=== PATIENT | female | born 1960 | race Caucasian/White ===

== ENCOUNTER 2019-06-23 17:40 | Emergency (ER) | payer OTHER, SELFPAY ==
[2019-06-23 18:00] VITALS: BP 196/103; PULSE 77; RESP 20; O2SAT 97
--- NOTE | 2019-06-23 18:57 | ED.ALLEREA ---
HPI - Allergic Reaction General Chief complaint: Allergic Reaction Stated complaint: ALLERGIC REACTION Time Seen by Provider: 06/23/19 18:30 Source: patient Mode of arrival: ambulatory Limitations: no limitations History of Present Illness HPI narrative: Silvana is a very pleasant 58-year-old female patient. She presents to the emergency room ambulatory with her . She states that she is having an allergic reaction . Gel state s that Sunday morning ( this is Sunday) she ate a store bought blueberry pie. About 8 or 10 hours later she started having through right ache rashes which were generalized on the trunk as well as the limbs. She did not do anything about it on Sunday. On Sunday at 2:00 p.m. she went to the [facility]. She states that she got a shot of steroid there and was given a prescription for prednisone which she got filled but has not started taking it yet. This evening she felt like she has a lump in her throat and she felt like her tongue is swelling. She had some difficulty breathing but that has subsided now. The allergic to write a crash is a still present, generalized on the trunk and limbs. She says that she has never had any kind of reaction like this in the past. Silvana has history of pre diabetes. She is on metformin 500 mg b.i.d.. She has history of hypercholesterolemia. She takes fenofibrate 145 mg daily. She has been on these medications for 4-5 years. She has never had any trouble with them. Silvana is not a smoker. She occasionally drinks alcohol socially. She has no shortness of breath at this time. She has no chest pain. She has no abdominal pain. She has no nausea or vomiting. MD complaint: allergic reaction and other ( See HPI narrative) Exposure: unknown and food Symptoms: difficulty breathing, tongue swelling and other ( PI narrativ) Severity: moderate Treatment prior to arrival: other ( see HPI narrative) Previous Allergic Reaction History: none Related Data Home Medications Medication Instructions Recorded Confirmed fenofibrate nanocrystallized 145 mg PO DAILY 06/23/19 06/23/19 metformin 500 mg PO BID 06/23/19 06/23/19 Allergies Allergy/AdvReac Type Severity Reaction Status Date / Time No Known Allergies Allergy Verified 06/23/19 17:48 Review of Systems Review of Systems: All systems reviewed & are unremarkable except as noted in HPI and below Constitutional: Constitutional: Reports as per HPI, Denies chills and Denies fever(s) Eyes: Eyes: Reports as per HPI, Reports no additional eye complaints and Denies change in vision ENT: Reports system reviewed and no additional complaints, except as documented Comments: Vero had a feeling of a lump in her throat. She felt like her tongue is swelling up. On oral examination the tongue appears to be normal. Uvula is not swollen. Cardiovascular: Cardiovascular: Reports as per HPI, Reports no additional cardiovascular complaints, Denies chest pain and Denies radiating jaw, neck or arm pain Respiratory: Respiratory: Reports as per HPI Comments: had some difficulty breathing prior to arrival but none now. Gastrointestinal: Gastrointestinal: Reports as per HPI, Denies abdominal pain, Denies nausea and Denies vomiting Genitourinary: Genitourinary: Reports no additional female genitourinary complaints, Denies hematuria and Denies dysuria Musculoskeletal: Musculoskeletal: Reports no additional musculoskeletal complaints, Denies back pain, Denies joint swelling and Denies muscle cramps Integumentary/Breasts: Skin/Breast: Reports system reviewed and no additional complaints, except as docu, Reports pruritus and Reports rash Comments: See HPI narrative for details Neurologic: Reports system reviewed and no additional complaints, except as documented, Denies vertigo, Denies dizziness, Denies syncope, Denies headache(s), Denies focal weakness, Denies numbness and Denies weakness Psychiatric: Psychiatric: Reports no
[2019-06-23] MEDS: methylPREDNISolone SOD SUCC 125 MG VIAL IV PUSH (18:59)
[2019-06-23] MEDS: FAMOTIDINE 20 MG/ISO 50 ML 20 MG/50 ML BAG 100 MG (18:59)
[2019-06-23 19:53] VITALS: BP 131/92; PULSE 68; O2SAT 93
[2019-06-23 20:27] VITALS: BP 141/78; PULSE 67; O2SAT 93
== END 2019-06-23 20:28 | disposition home or self-care (01) ==
PROVIDERS: Emergency Provider Surgery
DX: T78.40XA Allergy, unspecified, initial encounter (principal)
CPT/HCPCS: 96365; 96375; 99282; 99284; J1200; J2930

== ENCOUNTER 2023-10-08 09:13 | Outpatient (CLI) | payer BC, SELFPAY ==
--- NOTE | ~2023-10-08 | XR_ITS ---
Lumbosacral Spine: AP, oblique, and lateral views Clinical History: Pain Findings: The normal lordotic curve is maintained. The vertebral bodies and posterior elements are i ntact. The intervertebral disc spaces are preserved. Moderate facet joint arthropathy present, espec ially the lower lumbar spine. The sacroiliac joints are normally outlined. Impression: Facet arthropathy, as above. Reviewed, dictated and finalized at location M. Impression: Facet arthropathy, as above.
--- NOTE | ~2023-10-08 | US_ITS ---
Renal-Bladder ultrasound Clinical History: Flank pain Technique: Real-time sonographic imaging of the kidneys and urinary bladder was performed. Findings: The right kidney measures 9.6 cm in length and the left kidney measures 9.8 cm. There is no hydronephrosis or renal calculus identified. Renal cortical echogenicity is within normal limits. No renal mass lesion is identified. The urinary bladder is moderately distended at the time of this exam. No intraluminal echoes are iden tified. No abnormal wall thickening is seen. Impression: Unremarkable ultrasound of the kidneys and urinary bladder. Reviewed, dictated and finalized at location M. Impression: Unremarkable ultrasound of the kidneys and urinary bladder.
== END 2023-10-08 09:14 ==
PROVIDERS: PCP Internal Medicine
DX: R10.9 Unspecified abdominal pain (principal); M12.88 Other specific arthropathies, not elsewhere classified, other specified site
CPT/HCPCS: 72110; 76775

== ENCOUNTER 2024-09-06 12:07 | Emergency (ER) | payer OTHER, SELFPAY ==
--- NOTE | ~2024-09-06 | CT_ITS ---
EXAMINATION: CT brain wo con DATE: 09/06/2024 12:32 INDICATION: Head injury TECHNIQUE: Computed tomography (CT) of the head was performed without intravenous contrast. Sagittal and coronal reconstructions were performed. The mA was adjusted according to patient size. Iterative reconstruction technique was employed. The dose-length product was 605.33 mGy-cm. COMPARISON: None FINDINGS: No fracture. No acute intracranial hemorrhage, acute infarction or abnormal extra axial fluid collect ion. Ventricles are normal and symmetric. No mass/mass effect. The orbits, paranasal sinuses and mast oid air cells are normal. IMPRESSION: 1. No fracture or acute intracranial process. Reviewed, dictated and finalized at location A.
[2024-09-06 12:08] VITALS: BP 148/69; PULSE 80; RESP 16; TEMP 36.4; O2SAT 98
--- OUTSIDE RECORDS SUMMARY | 2024-09-06 12:10 | XMS_ITS | Clinical Summary ---
Author Organization [facility] Address [address] [place] [address] Care Team Providers Care Wire Coater Name Role Phone Patience Zapien MD Primary Care Provider Encounters Date Type Department Care Team Description 08/19/2024 External Device Data [facility] ABSTRACTION Provider, Abstract 08/06/2024 External Device Data [facility] ABSTRACTION Provider, Abstract 07/29/2024 External Device Data [facility] ABSTRACTION Provider, Abstract 07/29/2024 External Device Data [facility] ABSTRACTION Provider, Abstract 07/28/2024 External Device Data [facility] ABSTRACTION Provider, Abstract 07/26/2024 External Device Data [facility] ABSTRACTION Provider, Abstract 07/25/2024 External Device Data [facility] ABSTRACTION Provider, Abstract 07/23/2024 External Device Data [facility] ABSTRACTION Provider, Abstract 07/08/2024 External Device Data [facility] ABSTRACTION Provider, Abstract 06/11/2024 External Device Data [facility] ABSTRACTION Provider, Abstract 06/11/2024 External Device Data [facility] ABSTRACTION Provider, Abstract from Last 3 Months Social History Tobacco Use Types Packs/Day Years Used Date Smoking Tobacco: Never Assessed Comments Unknown Sex and Gender Information Value Date Recorded Sex Assigned at Not on file Legal Sex Female 6:37 PM TIRE MAN Gender Identity Not on file Sexual Orientation Not on file Plan of Treatment Health Maintenance Due Date Last Done Comments DIABETES ANNUAL RETINAL EXAM 09/12/1979 DIABETES MICROALBUMIN ANNUAL SCREEN 09/12/1979 LDL CHOLESTEROL ANNUAL 09/12/1979 HPV/Cotest (21-29) 1982 HPV/Cotest (30-65) 09/12/1991 FIT-DNA Q 3 years 2006 FIT/FOBT Q 1 year 2006 Flex Sig/CT Colonography Q 5 years 2006 DIABETES ANNUAL FOOT EXAM 03/22/2024 03/22/2023 DIABETES HBA1C Q 6 MONTHS 04/05/2024 10/04/2023 BREAST CANCER SCREENING 03/31/2025 03/31/20 24, 03/22/2023, 03/22/2023, Additional history exists CERVICAL CANCER SCREENING 06/21/2026 PAP SMEAR 06/21/2026 06/21/2023 DTAP/TDAP/TD VACCINES (2 - T d or Tdap) 03/05/2028 03/05/2018 COLORECTAL SCREENING 06/05/2029 06/05/2019, 06/05/19 Colorectal Cancer Screening 06/05/2029 RSV VACCINE (60+ or ) (1 - 1-dose 75+ series) 2036 ZOSTER VACCINE Completed 05/17/2022, 02/28/2022 INFLUENZA VACCINE Completed 02/25/2024, , 03/20/2022, Additional history exists Procedures Procedure Name Priority Date/Time Associated Diagnosis Comments MAMMO 3D KEY SCREEN BILAT W OR WO CAD Routine 03/31/2024 10:41 AM TIRE MAN Encounter for screening for malignant neoplasm of breast, unspecified screening modality from Last 3 Months or Most Recently Relevant to Health Maintenance Results * MAMMO 3D KEY SCREEN BILAT W OR WO CAD (03/31/2024 10:41 AM TIRE MAN) Anatomical Region Laterality Modality Breast Bilateral Mammography 03/31/2024 10:4 1 AM TIRE MAN Impressions 03/31/2024 11:09 AM TIRE MAN IMPRESSION: BI-RADS 2, benign findings consistent with benign calcifications. Annual screening mammography is advised. Narrative 03/31/2024 11:09 AM TIRE MAN Bilateral screening mammogram. Comparison is made with bilateral screening mammogram from 03/22/2023, 03/20/2022, 03/10/2019 and 01/16/2018. CLINICAL HISTORY: Patient is 63-year-old female without personal or family history consistent with of breast cancer. TECHNIQUE: Bilateral CC and MLO images of the breasts were obtained and reviewed with 2-D mammogram and tomosynthesis/3-D. FINDINGS: The breast parenchyma is composed of scattered fibroglandular densities, category B. Bilaterally, there are coarse and benign calcifications which are not significantly changed since the previous study. Elsewhere, bilaterally, there are no suspicious masses, microcalcifications in clusters, architectural distortions or asymmetric densities. us Patience Zapien MD MAMMO ORDERABLES Final Result from Last 3 Months or Most Recently Relevant to Health Maintenance Insurance [facility] ACCESS CHOICE Care Teams Wire Coater Relationship Specialty Start Date End Date Patience Zapien MD [address] [address] PCP - General Internal Medicine 03/22/23
--- OUTSIDE RECORDS SUMMARY | 2024-09-06 12:10 | XMS_ITS | CONTINUITY OF CARE DOCUMENT ---
Author Name jona tenorio Address Unknown Organization [facility] Address [address] [place] [address] Phone [phone] Care Team Providers Care Eligibility And Occupancy Interviewer Name Role Phone Tyrell Pena MD Unavailable [phone] TIRSO KLINE MD Unavailable TIRSO KLINE MD Unavailable PROBLEMS Condition Status Date Provider Notes Cardiovascular screening active [employer] Payer name Policy type / Coverage type [place] red libertarian ID SELF PAY TREATMENT PLAN Date Name CT, Coronary Calcium Score HISTORY OF PROCEDURES Procedure Date Procedure Name Provider Procedure Notes S tatus CT- Coronary CA score Tyrell Pena MD completed
--- OUTSIDE RECORDS SUMMARY | 2024-09-06 12:10 | XMS_ITS | Data Portability ---
Author Organization [facility] Address [address] [place] [address] Care Team Providers Care Agricultural Extension Officer Name Role Phone TIRSO KLINE Primary Care Provider Assessment Encounter Date Assessment Date Assessment LastModified by Organization Details LastModified Time 06/21/2023 06/21/2023 Annual gynecological exam performed. Patient will come back in a year unless there are new symptoms. [email or web address] Not available 06/21/2023 14:09:21 Plan of Treatment Reminders Order Date Submit Date Provider Last Modified By Organization Details Last Modified Time Details Appointments None record ed. Lab None record ed. Referral None record ed. Procedures None record ed. Surgeries None record ed. Imaging None record ed. Medication Orders None record ed. Patient TargetsNo targets recorded. Patient InstructionsNo instructions recorded. Reason for Referral None Reported. 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 Atrop hic cell cecil rn. Elect mello garcia jayna d by Lilli Bateman ica on 024 at 9:41 AM ----- ----- ----- ----- ----- ----- ----- ----- ----- ----- ----- ----- ----- ----- ----- ----- ----- ---- HPV RESUL TS: HPV mRNA E6/E7 : No HPV mRNA Detec cecy NOTE: This high risk HPV mRNA assay detec ts fourt een high- risk HPV types (16, 18, 31, 33, 35, 39, 45, 51, 52, 56, 58, 59, 66, 68) witho ut diffe renti ation . COMME NT: This speci men was revie wed by a Cytot echno logis t and/o r Patho logis t (as indic ated in this repor t) after evalu ation using the Thinp rep Imagi ng Syste m. CLINI GUY INFOR MATIO N: Menst rual Statu s: LMP (if appli cable ): Clini guy Histo ry/Pr eviou s Pap: Type of Neopl sisi (if appli cable ): Signi fican t Clini guy Findi ngs: Other Histo ry: Hormo yo (if appli cable ): PAP EDUCA JESICA L NOTE: The Pap Test is a scree kurt test with an inher ent false negat fanny rate. Liqui d-bas ed sampl ing may decre ase, but will not elimi argelia, false negat fanny resul ts. A negat fanny resul t does not precl ude the prese nce and/o r devel opmen t of disea se, since the prese nce of abnor mal cells in the sampl e depen ds on the locat ion of the lesio n and sampl ing techn ique. Galen nued regul ar scree kurt is the best metho d of cance r preve ntion . If repor cecy cytol ogic findi ng do not corre late with physi guy and/o r histo rical findi ngs, furth er inves tigat ion is recom carroll d, as clini mart moreau nted. Not Available [facility] (Lab) [address], [place], [address], 06/25/2023 10:45:15 Result Notes None recorded. Problems Name Problem SNOMED Code Status Onset Date Resolution Date Notes Provider Name and Address Organization Details Recorded Time Hypertensive disorder 87038048 Active 2023 Nemo espinoza [facility] 4 14:11:19 Diabetes mellitus 02729815 Active 2023 Nemo espinoza [facility] 4 14:11:25 Problem Notes None recorded. Procedures Surgical History Date Name Laterality Status Provider Name and Address Organization Details Recorded Time 06/21/19 24 Date of Last Pap Smear completed Nemorobert Flynn [facility] 06/21/2023 14:11:48 08/03/[address] [facility] 06/21/2023 14:17:20 04/05/19 95 section completed Nemorobert Flynn [facility] 06/21/2023 14:17:14 05/21/18 94 Breast Biopsy completed Nemo [facility] 06/21/2023 14:17:42 06/26/18 [address] [facility] 06/21/2023 14:16:59 colonoscopy completed Soni Puente, EVANGELISTA- [address], [place], [address], [facility] 06/21/2023 14:17:50 Imaging Results None recorded. Procedure Notes None recorded. Medical Equipment None Reported. Allergies No known drug allergies Medications Name Sig Start Date Stop Date Status Note LastModified by Organization Details LastModified Time amlodipine 5 mg tablet active Not Available Not Available No t Available metformin ER 500 mg tablet,extende d release 24 hr active Not Available Not Available Not Available rosuvastatin 5 mg tablet active Not Available Not Available No t Available Vitals Date Recorded Body height Body mass index (BMI) Body weight Systolic blood pressure Diastolic blood pressure Provider Name and Address Organization Details Last Updated DateTime 06/21/2023 146.05 cm 33 kg/m2 28527.82 g 130 mm[Hg] 71 mm[Hg] Nemo Flynn [facility] 14:10:15 Social History Question Answer Notes LastModified by Organizat ion Details LastModified Time Tobacco Smoking Status Former Smoker Nemo Flynn [facility] 06/21/2023 14:16:39 What Is Your Level Of Alcohol Consumption? Occasional [email or web address] Information not available 06/21/2023 How Many Years Have You Consumed Alcohol? 40 [email or web address] Information not available 06/21/2023 Are You Blind Or Do You Have Difficulty Seeing? No [email or web address] Information not available 06/21/2023 What Is Your Level Of Caffeine Consumption? Moderate Information not available 06/21/2023 How Much Tobacco Do You Chew? None [email or web address] Information not available 06/21/2023 In The 14 Days Before Symptom Onset, Have You Had Close Contact With A Laboratory-confir med COVID-19 While That Case Was Ill? No [email or web address] Information not available 06/21/2023 In The 14 Days Before Symptom Onset, Have You Had Close Contact With A Person Who Is Under Investigation For COVID-19 While That Person Was Ill? No [email or web address] Information not available 06/21/2023 Have You Been To An Area Known To Be High Risk For COVID-19? No [email or web address] Information not available 06/21/2023 Are You Deaf Or Do You Have Serious Difficulty Hearing? No [email or web address] Information not available 06/21/2023 What Type Of Diet Are You Following? REGULAR [email or web address] Information not available 06/21/2023 What Is The Highest Grade Or Level Of School You Have Completed Or The Highest Degree You Have Received? PG38868-3 [email or web address] Information not available 06/21/2023 What Is Your Occupation? Retired [email or web address] Information not available 06/21/2023 Are There Any Guns Present In Your Home? No [email or web address] Information not available 06/21/2023 Have You Ever Been Counseled For Unhealthy Alcohol Use? No Information not available 06/21/2023 Do You Use Protection During Sex? No [email or web address] Information not available 06/21/2023 Do You Use Your Seat Belt Or Car Seat Routinely? Yes [email or web address] Information not available 06/21/2023 Do You Have Smoke And Carbon Monoxide Detectors In Your Home? Yes [email or web address] Information not available 06/21/2023 How Much Tobacco Do You Smoke? No [email or web address] Information not available 06/21/2023 Do You Feel Stressed (tense, Restless, Nervous, Or Anxious, Or Unable To Sleep At Night)? [id number] [email or web address] Information not available 06/21/2023 Do You Use Any Illicit Or Recreational Drugs? No [email or web address] Information not available 06/21/2023 Do You Use Sunscreen Routinely? Yes [email or web address] Information not available 06/21/2023 Has Tobacco Cessation Counseling Been Provided? No [email or web address] Information not available 06/21/2023 Have You Used IV Drugs? No [email or web address] Information not available 06/21/2023 Do You Or Have You Ever Used Any Other Forms Of Tobacco Or Nicotine? No [email or web address] Information not available 06/21/2023 Sex: Unknown Functional Status Question Answer Note LastModified by Organizat ion Details LastModified Time Do you have difficulty walking or climbing stairs? No [email or web address] Information not available 06/21/2023 Are you able to walk? YESWOREST [email or web address] Information not available 06/21/2023 Are you able to care for yourself? Yes [email or web address] Information not available 06/21/2023 Do you have difficulty dressing or bathing? No [email or web address] Information not available 06/21/2023 What is your exercise level? Moderate [email or web address] Information not available 06/21/2023 Mental Status None recorded. Family History Relationship Description Onset Age of this Age Resolved Age Notes LastModified by Organization Details LastModified Time Father Heart disease [email or web address] Not available 06/21 14:16:12 Father Diabetes mellitus [email or web address] Not available 06/21 14:16:19 Medical History Condition Response Allergies (Food, seasonal, environmental ) N Other N Breast Cancer N Drug/Latex Allergies/Reactions N Blood Transfusion N Dermatologic Disorders N Lung Disease N Defects or Inherited Disease N Breast Problem Y Gestational Diabetes N Hematologic disorders N Anesthesia Complications N History of STI N Deep Vein Thrombosis N Polycystic ovary syndrome N Anxiety Disorder N Autoimmune disease N Arthritis N Infertility N Polyps N Acid Reflux (GERD) N History of abnormal pap N Cancer N Stroke N Varicosities N Neurologic/Epilepsy N Endometriosis N High Cholesterol Y Headaches N Fibromyalgia N Kidney Disease N Heart Problems N Kidney or Bladder Problems N Thyroid Problems N GI Problems N Eating Disorder N Anemia N Art (IVF or FET) N Psychiatric Illness N Ovarian Cancer N Diabetes Y Pulmonary (TB, Asthma) N Hepatitis/Liver Disease N No Past Medical History N Eczema N Urinary Tract Infection N Abuse/Domestic Violence N Asthma N Trauma/Violence N Depression/ depression N Heart Disease N Pre-Eclampsia N Hypertension Y Osteoporosis N Thrombophilias N Gynecological History Statement/Question Response Abnormal Pap N Date of Last Mammogram Date of LMP 05/21/2018 On BCP's at Conception? N N STIs/STDs N HPV Vaccine N Duration of Flow (days) 0 Current Control Method Menopause If Post Menopausal, Age at Menopause 57 Frequency of Cycle (Q days) 0 Sexually Active? Y Date of DEXA bone scan Age of first menstrual cycle 14 Date of Last Pap Smear 06/21/2023 Sexual Problems? N LMP Unknown N Obstetrics History GPAL:G 4 P 3 0 1 3 Type Value Full Term 3 Spontaneous 1 Living 3 Total 4 Past Encounters Encounter ID Performer Location Encounter Start Date Encounter Closed Date Diagnosis/Indication Diagnosis SNOMED-CT Code Diagnosis ICD10 Code Diagnosis Note [id number] Soni Puente [facility] [address] [address] 06/21/2023 13:49:54 06/21/2023 14:37:31 Gynecologic examination [id number] Z01.419 Take Calcium with Vitamin D 12-1500mg daily. Do monthly self breast exams. It is advised to get annual flu shot in the fall and she could obtain at [facility] or [facility] care clinic. If you haven't received the Tdap vaccine in the last 10 years you should obtain one as well. Have mammogram yearly, bone density every 2-3 years and colonoscop y every 5-10 years depending on findings and history. Engage in daily exercise of low impact aerobic exercise 45-60 minutes 4-5 times weekly. Avoid tobacco and illicit drugs as well as using moderation with alcohol intake less than 1-2 8 oz beverages daily. This lifestyle behavior pattern will lead to less health conditions and longer life span. If BMI greater than 25 weight watchers or dietary consult advised. Questions have been answered. Patient appears to understand instructio ns, but if you have any further questions call or respond to this email Pap/hpv sent STD Screen declined Genetic Screen discussed Colon Screen UTD PCP Dexa Screen UTD PCP Routine Labs UTD PCP Health Concerns Section Related Observation LastModified by Organization Detai ls LastModified Time None Recorded Concern Status LastModified by Organization Details LastModified Time None Recorded Advance Directives Directive None Recorded Payers Encounter Date Sequence Insurance Name Policy Number Policy Garcia Covered Member ID Garcia Member ID Guarantor Name 06/21/2023 1 [place] [id number] Silvana Mitchell [id number] Silvana Mitchell Notes Date Note Type Note Provider Name and Address Organization Details Recorded Time 06/21/2023 text/html Annual Mill Manager Post-MenopausalRe ported bypatient.Menopau marcellus Symptoms:no menopausal symptoms; normal vaginal lubrication Vaginal Bleeding:history of menopause having occurred; no history of post menopausal bleeding Urinary Symptoms:no hematuria; no incontinence; no nocturia; no urinary frequency Vulva:no genital lesion; no vulvar atrophy Vagina:normal vaginal discharge; no vaginal atrophy Breast:no breast lump; no nipple discharge; no breast pain Sexual Complaints:no sexual complaints Psychological Symptoms:no depression; no anxiety Preventive Measures:encourag e regular mammograms starting age 40; encourage self breast examination; encourage regular exercise; encourage no tobacco use; mammogram performed within the past year; history of recent colonoscopy MICHAEL Alicia [address], [place], [address], [facility] 06/21/2023 14:46:47 OBGyn Episode Ob Episode Information Episode Created Date Number of Fetuses Patient Bloodtype Patient rh Status Prepregnancy Weight lbs Domestic Partner Domestic Partner Phone Father Name Dermatopathologist Status 06/21/19 24 1 CLOSED Fetus Data First Name Last Name Admitted to NICU Weight (g) Sex Living Outcome Pediatric Complications Fetus ID Race Codes Race Delivery Type 3288.54 2 M Full Term [id number] Repeat Terrell Calculation Initial Terrell Date Initial Exam Date Initial Exam Provider Initial Ultrasound Date Last Menstrual Period Date Ultra Sound Weeks Gestation 0 Eighteen To Twenty Week Terrell Update Ultra Sound Date Fundal Height At Umbil Quickening Date Ultra Sound Latest Weeks Gestation Final Terrell Confirmed By Final Terrell Confirmed Date Final Terrell Date Ultra Sound Latest Days Gestation 0 0 Menstrual History Last Menstrual Date Menses Monthly On Bcp Conception Prior Menses Frequency Hcg Plus Date Menarche Onset Age Delivery Information Delivery Date Delivery Type Labor Anesthesia Weeks Gestation Incision Type Labor Labor Length Hrs Delivered By Post Complications Tubal Sterilization Discharge Date Comments 9 38 Discharge Information Feeding Method Contraceptive Method Maternal HG B and HCT Levels Ob Episode Information Episode Created Date Number of Fetuses Patient Bloodtype Patient rh Status Prepregnancy Weight lbs Domestic Partner Domestic Partner Phone Father Name Dermatopathologist Status 06/21/19 24 1 CLOSED Fetus Data First Name Last Name Admitted to NICU Weight (g) Sex Living Outcome Pediatric Complications Fetus ID Race Codes Race Delivery Type , Spontane ous [id number] Terrell Calculation Initial Terrell Date Initial Exam Date Initial Exam Provider Initial Ultrasound Date Last Menstrual Period Date Ultra Sound Weeks Gestation 0 Eighteen To Twenty Week Terrell Update Ultra Sound Date Fundal Height At Umbil Quickening Date Ultra Sound Latest Weeks Gestation Final Terrell Confirmed By Final Terrell Confirmed Date Final Terrell Date Ultra Sound Latest Days Gestation 0 0 Menstrual History Last Menstrual Date Menses Monthly On Bcp Conception Prior Menses Frequency Hcg Plus Date Menarche Onset Age Delivery Information Delivery Date Delivery Type Labor Anesthesia Weeks Gestation Incision Type Labor Labor Length Hrs Delivered By Post Complications Tubal Sterilization Discharge Date Comments 8 Discharge Information Feeding Method Contraceptive Method Maternal HG B and HCT Levels Ob Episode Information Episode Created Date Number of Fetuses Patient Bloodtype Patient rh Status Prepregnancy Weight lbs Domestic Partner Domestic Partner Phone Father Name Dermatopathologist Status 06/21/19 24 1 CLOSED Fetus Data First Name Last Name Admitted to NICU Weight (g) Sex Living Outcome Pediatric Complications Fetus ID Race Codes Race Delivery Type 3572.03 7 F Full Term [id number] Repeat Terrell Calculation Initial Terrell Date Initial Exam Date Initial Exam Provider Initial Ultrasound Date Last Menstrual Period Date Ultra Sound Weeks Gestation 0 Eighteen To Twenty Week Terrell Update Ultra Sound Date Fundal Height At Umbil Quickening Date Ultra Sound Latest Weeks Gestation Final Terrell Confirmed By Final Terrell Confirmed Date Final Terrell Date Ultra Sound Latest Days Gestation 0 0 Menstrual History Last Menstrual Date Menses Monthly On Bcp Conception Prior Menses Frequency Hcg Plus Date Menarche Onset Age Delivery Information Delivery Date Delivery Type Labor Anesthesia Weeks Gestation Incision Type Labor Labor Length Hrs Delivered By Post Complications Tubal Sterilization Discharge Date Comments 5 39 Discharge Information Feeding Method Contraceptive Method Maternal HG B and HCT Levels Ob Episode Information Episode Created Date Number of Fetuses Patient Bloodtype Patient rh Status Prepregnancy Weight lbs Domestic Partner Domestic Partner Phone Father Name Dermatopathologist Status 06/21/19 24 1 CLOSED Fetus Data First Name Last Name Admitted to NICU Weight (g) Sex Living Outcome Pediatric Complications Fetus ID Race Codes Race Delivery Type 3713.55 7704 F Full Term [id number] Primary Terrell Calculation Initial Terrell Date Initial Exam Date Initial Exam Provider Initial Ultrasound Date Last Menstrual Period Date Ultra Sound Weeks Gestation 0 Eighteen To Twenty Week Terrell Update Ultra Sound Date Fundal Height At Umbil Quickening Date Ultra Sound Latest Weeks Gestation Final Terrell Confirmed By Final Terrell Confirmed Date Final Terrell Date Ultra Sound Latest Days Gestation 0 0 Menstrual History Last Menstrual Date Menses Monthly On Bcp Conception Prior Menses Frequency Hcg Plus Date Menarche Onset Age Delivery Information Delivery Date Delivery Type Labor Anesthesia Weeks Gestation Incision Type Labor Labor Length Hrs Delivered By Post Complications Tubal Sterilization Discharge Date Comments 8 39 Discharge Information Feeding Method Contraceptive Method Maternal HG B and HCT Levels
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
--- OUTSIDE RECORDS SUMMARY | 2024-09-06 12:27 | XMS_ITS | Referral Summary ---
Author Organization [facility] Address [address] [place] [id number] Care Team Providers Care Mis Specialist Name Role Phone Patience Zapien MD Primary Care Provider [phone] Encounters Date Type Department Care Team Description 08/25/2024 Orders Only [facility] Medical [facility] Primary Care at [address] [phone] Donna Ahumada NP Thrombosed external hemorrhoid (Primary Dx) 08/21/2024 7:30 AM CDT Office Visit [facility] Medical [facility] Primary Care at [address] [address] Donna Ahumada NP Thrombosed external hemorrhoid (Primary Dx) 08/16/2024 Orders Only [facility] Information Management [address] [place] [address] Scanning, Provider from Last 3 Months Allergies No known active allergies Medications cholecalciferol (VITAMIN D-3) 1,000 unit capsule 1 po qday 0 0 3 Active albuterol HFA (PROVENTIL HFA,VENTOLIN HFA,PROAIR HFA) 90 mcg/actuation inhaler Inhale 2 puffs every 6 (six) hours as needed for wheezing 1 Inhaler 3 9 Active hydroCHLOROthia zide (HYDRODIURIL) 12.5 mg tablet Take 1 tablet (12.5 mg total) by mouth daily as needed (edema) 90 tablet 3 0 Active triamcinolone (KENALOG) 0.1 % cream Apply to affected area 1-2 times daily as needed. Avoid face and groin. 80 g 4 4 Active rosuvastatin (CRESTOR) 5 mg tablet TAKE 1 TABLET DAILY 90 tablet 2 4 Active amLODIPine (NORVASC) 5 mg tablet TAKE 1 AND 1/2 TABLETS (7.5MG TOTAL)DAILY 135 tablet 2 4 Active metFORMIN XR (GLUCOPHAGE XR) 500 mg 24 hr tablet Take 2 tablets daily with breakfast 180 tablet 2 5 Active hydrocortisone (ANUSOL-HC) 2.5 % rectal creamIndication s:Thrombosed external hemorrhoid Insert into the rectum 4 (four) times a day as needed for hemorrhoids (rectal discomfort) Apply to affected areas 60 g 1 5 Active Active Problems Problem Noted Date Diagnosed Date Hot flashes 11/06/2022 Assessment & Plan (11/06/2022 12:15 PM CDT): Chronic- worse with insomnia Discussed menopause and menopausal like symptoms that she is currently experience However will evaluate her thyroid and hemoglobin A1c Fatigue 11/06/2022 Assessment & Plan (11/06/2022 12:15 PM CDT): Chronic worse may be associated with poor sleeping and stress My differential diagnosis for fatigue at this time includes but is not limited to the following possibility vitamin deficiency metabolic endocrine changes inclusive of thyroid anemia Check lab Jaw pain 11/06/2022 Assessment & Plan (11/06/2022 12:16 PM CDT): No pain on exam today Discussed evaluation for TMJ She will continue to monitor may use diclofenac cream when having pain Diabetes mellitus 03/20/2022 Dermatitis 09/13/2021 Assessment & Plan (09/13/2021 10:56 AM CDT): Patient with intermittent recurrent dermatitis on her arms improves with triamcinolone She is requesting a refill today Hyperglycemia 03/15/2021 Assessment & Plan (03/20/2022 8:18 AM CDT): Increase exercise On metformin 1000 mg a day Also on statin Assessment & Plan (09/13/2021 10:55 AM CDT): Elevated glucose is currently controlled with metformin patient is tolerating the medication well Hemoglobin A1c is 5.7 today Discussed the role of diet and weight with control of diabetes Primary hypertension 03/15/2021 Assessment & Plan (03/20/2022 8:18 AM CDT): Stable on amlodipine 7.5 mg a day hctz 12.5 mg prn Assessment & Plan (09/13/2021 10:56 AM CDT): Patient is currently on 7.5 mg of amlodipine with control of blood pressure she does have a prescription for hydrochlorothiazide-which she notes she uses possibly twice a month at best. Discussed issue find increased need for the hydrochlorothiazide for edema can change that to a daily medication and increase the amlodipine to 5 mg Check labs Anxiety 03/10/2019 Assessment & Plan (11/06/2022 12:18 PM CDT): stress reducing OTC- l- thianine with ashwuganda as discussed not FDA approved Consider maybe fluoxetine (did not tolerate sertaline and escitalopram) or an SNR Assessment & Plan (03/20/2022 8:17 AM CDT): Xanax prn Hyperlipidemia 11/25/2013 Overview (08/25/2016): Hyperlipidemia Assessment & Plan (03/20/2022 8:19 AM CDT): On statin increase exercise Assessment & Plan (09/13/2021 10:54 AM CDT): Patient is currently on low-dose statin Will recheck levels today discussed the role of moderate dose statin with diabetes Assessment & Plan (06/26/2019 8:56 AM DIMENSIONAL ENGINEER): Stable on medication. Will check labs today. Resolved Problems Problem Noted Date Diagnosed Date Resolved Date Personal history of colonic polyps 05/03/2018 03/10/2019 Overview (05/03/2018): Added automatically from request for surgery [id number] BMI 32.0-32.9,adult 01/16/2017 09/14/19 Assessment & Plan (06/26/2019 8:56 AM DIMENSIONAL ENGINEER): Eating a diet that is high in fresh fruits and vegetables as well as complex carbohydrates, lean meats and avoiding high fat foods and concentrated sugars is preferable and helps lead to a healthier BMI. Also adding in aerobic exercise daily will help lead to a lower BMI. Routine medical exam 01/16/2017 019 Generalized abdominal pain 01/16/2017 1 Thyroid nodule 01/16/2017 03/11/2020 Special screening for malign ant neoplasms, colon 01/16/2017 03/10/2019 Immunizations Immunization Administration Dates Next Due Influenza, Quadrivalent, Spl it, Preservative Free, Intramuscular 03/22/2023,03/20/2022,03/15/2021,03/11,03/10/2019,03/05/2018 Influenza, Trivalent, Cell Culture-based MDCK, Preservative Free, Antibiotic Free, Intramuscular 02/25/2024 Pfizer SARS-CoV-2 Monovalent Vaccination (12+ Yrs) PURPLE 08/19/2021 Pneumococcal Polysaccharide PPV23 01/16/2017 Tdap 03/05/2018 ZOSTER Recombinant 05/17/2022,02/28/2022 Social History Tobacco Use Types Packs/Day Years Used Date Smoking Tobacco: Former Smokeless Tobacco: Never Tobacco Cessation:Counseling Given: Not Answered Alcohol Use Standard Drinks/Week Comments Yes 1 (1 standard drink = 0.6 oz pur e alcohol) PHQ-2 Answer Date Recorded PHQ-2 Total Score (If total score is 3 or more points, staff should administer the PHQ-9) 0 03/31/2024 Comments Unknown Sex and Gender Information Value Date Recorded Sex Assigned at Not on file Legal Sex Female 9:50 AM DIMENSIONAL ENGINEER Gender Identity Not on file Sexual Orientation Not on file Last Filed Vital Signs Vital Sign Reading Time Taken Comments Blood Pressure 100/74 08/21/2024 7:22 AM CDT Pulse 82 08/21/2024 7:22 AM CDT Temperature 36.7 C (98.1 F) 11/06/2022 8:26 AM CDT Respiratory Rate 12 08/21/2024 7:22 AM CDT Oxygen Saturation 99% 08/21/2024 7:22 AM CDT Inhaled Oxygen Concentration - - Weight 68 kg (150 lb) 08/21/2024 7:22 AM CDT Height 150.5 cm (4' 11.25 ) 08/21/2024 7:22 AM C DT Body Mass Index 30.04 08/21/2024 7:22 AM CDT Plan of Treatment Not on file Procedures Procedure Name Priority Date/Time Associated Diagnosis Comments SCAN - RADIOLOGY/IMAGING 08/16/2024 BASIC METABOLIC PANEL Routine 04/07/2024 10:36 AM DIMENSIONAL ENGINEER Hyponatremia HEMOGLOBIN A1C Routine 03/31/2024 9:51 AM DIMENSIONAL ENGINEER Type 2 diabetes mellitus without complication, without long-term current use of insulin (HCC) LIPID PANEL Routine 03/31/2024 9:51 AM DIMENSIONAL ENGINEER Type 2 diabetes mellitus without complication, without long-term current use of insulin (HCC) ALBUMIN CREATININE RATIO, URINE Routine 03/31/2024 9:51 AM DIMENSIONAL ENGINEER Type 2 diabetes mellitus without complication, without long-term current use of insulin (HCC) SCREENING MAMMOGRAM 2D BILATERAL Schedule Routine, Read Routine (OP Routine) 03/31/2024 8:29 AM DIMENSIONAL ENGINEER COLONOSCOPY 06/05/2019 1:50 PM DIMENSIONAL ENGINEER HEPATITIS C ANTIBODY Routine 01/16/2017 8:23 AM CDT Generalized abdominal pain from Last 3 Months or Most Recently Relevant to Health Maintenance Results * SCAN - RADIOLOGY/IMAGING (08/16/2024) Anatomical Region Laterality Modality Other us Provider Scanning Final Result * Basic metabolic panel (04/07/2024 10:36 AM DIMENSIONAL ENGINEER) Glucose 96 65 - 99 mg/dL [facility] [employer] Comment: Fasting reference interval BUN 17 7 - 25 mg/dL [facility] [employer] Creatinine 0.74 0.50 - 1.05 mg/dL Rehan Salguero-[facility] Costello eGFR 91 > OR = 60 mL/min/1.7 3m2 [employer]han [employer] BUN/creat ratio SEE NOTE: 6 - 22 (calc) [facility]han [employer] Comment: Not Reported: BUN and Creatinine are within reference range. Sodium 136 135 - 146 mmol/L [facility] [employer] Potassium, pl 4.7 3.5 - 5.3 mmol/L [employer] Chloride 100 98 - 110 mmol/L [employer] CO2 28 20 - 32 mmol/L Rehan [employer] Calcium 9.8 8.6 - 10.4 mg/dL [employer] Blood 04/07/2024 10:3 6 AM DIMENSIONAL ENGINEER 04/07/2024 10:37 AM DIMENSIONAL ENGINEER Patience Zapien MD LAB BLOOD ORDERABLES Final Result Performing Organization Address [facility]/ZIP Co de Phone Number [facility]Los [facility] CenterKlar[facility] [address] [place] [address] * (ABNORMAL) Albumin Creatinine Ratio, Urine (03/31/2024 9:51 AM DIMENSIONAL ENGINEER) Pathologist [facility] Albumin Ur 20.7 mg/L Comment: Interpretive Data No reference range established. Current interpretive data was last revised 2018. Creatinine Ur 42.5 mg/dL [facility] Comment: Interpretive Data No reference range established. Current interpretive data was last revised 2018. Albumin Creatinine Ratio, Ur 49(H) 1 - 29 mg/g [facility] Urine 03/31/2024 9:51 AM DIMENSIONAL ENGINEER 03/31/2024 9:51 AM DIMENSIONAL ENGINEER Patience Zapien MD LAB URINE ORDERABLES Final Result Performing Organization Address City/[facility]/ZIP Co de Phone Number [facility] [address] [place] [address] * (ABNORMAL) Hemoglobin A1c (03/31/2024 9:51 AM DIMENSIONAL ENGINEER) Hgb A1C 6.0(H) 4.0 - 5.6 % Estimated Average Glucose 126 mg/dL [facility] Comment: The ADA recommends reporting an estimated Average Glucose (eAG) with all Hemoglobin A1c results using the equation derived from a study of 507 normal and diabetic adults. Minority populations were underrepresented and children were not included. (Diabetes Care 31:8654-8981, 2008). The eAG is not equivalent to a fasting glucose. Blood 03/31/2024 9:51 AM DIMENSIONAL ENGINEER 03/31/2024 12:49 PM DIMENSIONAL ENGINEER us Patience Zapien MD LAB BLOOD ORDERABLES Final Result [facility] [address] Department [place] [address] * Lipid panel (03/31/2024 9:51 AM DIMENSIONAL ENGINEER) Cholesterol 181 30 - 199 mg/dL Comment: Interpretive Data Ages < or = 19 years Acceptable: <170 mg/dL Borderline high: 170-199 mg/dL High: >or= 200 mg/dL Ages > or = 20 years Desirable: <200 mg/dL Borderline high: 200-239 mg/dL High: >or= 240 mg/dL Literature References: 1. Expert Panel on Integrated Guidelines for Cardiovascular Health and Risk Reduction in Children and Adolescents. Pediatrics 2011;128:S213 2. NCEP Expert Panel. Circulation 2004;110:227 Current Interpretive Data was last revised on 2018. Triglycerides 139 <=149 mg/dL [facility] Comment: Interpretive Data Ages < or = 9 years Acceptable: <75 mg/dL Borderline high: 75-99 mg/dL High: >or= 100 mg/dL Ages 10 to 20 years Acceptable: <90 mg/dL Borderline high: 90-129 mg/dL High: >or= 130 mg/dL Ages > or = 20 years Desirable: <150 mg/dL Borderline high: 150-199 mg/dL High: 200-499 mg/dL Very high: >or= 499 mg/dL Literature References: 1. Expert Panel on Integrated Guidelines for Cardiovascular Health and Risk Reduction in Children and Adolescents. Pediatrics 2011;128:S213 2. NCEP Expert Panel. Circulation 2004;110:227 Current Interpretive Data was last revised on 2018. HDL 66 >=40 mg/dL [facility] Comment: Interpretive Data Ages < or = 19 years Acceptable: >45 mg/dL Borderline low: 40-45 mg/dL Low: <40 mg/dL Ages > or = 20 years Desirable: >or= 60 mg/dL Low: <40 mg/dL Literature References: 1. Expert Panel on Integrated Guidelines for Cardiovascular Health and Risk Reduction in Children and Adolescents. Pediatrics 2011;128:S213 2. NCEP Expert Panel. Circulation 2004;110:227 Current Interpretive Data was last revised on 2018. LDL, calculated 91 <=129 mg/dL [facility] Comment: Interpretive Data Ages < or = 19 years Acceptable: <110 mg/dL Borderline high: 110-129 mg/dL High: >or= 130 mg/dL Ages > or = 20 years Optimal: <100 mg/dL Near optimal: 100-129 mg/dL Borderline high: 130-159 mg/dL High: >160 mg/dL Calculated using the Jamar LDL-C estimating equation. This equation was implemented on 2024. Prior to this date LDL-C was estimated using the Friedewald equation. Literature References: 1. Expert Panel on Integrated Guidelines for Cardiovascular Health and Risk Reduction in Children and Adolescents. Pediatrics 2011;128:S213 2. NCEP Expert Panel. Circulation 2004;110:227 3. Jamar Yuan et al. SILVIA Cardiol. 2020 September 18;5(5):540-548. doi: 10.1001/jamacardio.2020.0013 Current Interpretive Data was last revised on 2024. Non-HDL Cholesterol 115 mg/dL [facility] Comment: Interpretive Data Ages < or = 19 years Acceptable: <120 mg/dL Borderline high: 120-144 mg/dL High: >145 mg/dL Ages > or = 20 years When triglycerides are >200 mg/dL, Non-HDL cholesterol is a secondary target of therapy with treatment goals that are 30 mg/dL greater than the LDL cholesterol target. Literature References: 1. Expert Panel on Integrated Guidelines for Cardiovascular Health and Risk Reduction in Children and Adolescents. Pediatrics 2011;128:S213 2. NCEP Expert Panel. Circulation 2004;110:227 Current Interpretive Data was last revised on 2018. Chol/HDL ratio 3 [facility] Blood 03/31/2024 9:51 AM DIMENSIONAL ENGINEER 03/31/2024 12:49 PM DIMENSIONAL ENGINEER us Patience Zapien MD LAB BLOOD ORDERABLES Final Result [facility] [address] Department [place] [address] * Screening Mammogram 2D Bilateral (03/31/2024 8:29 AM DIMENSIONAL ENGINEER) Anatomical Region Laterality Modality Breast Bilateral Mammography us Historical Provider IMG MAMMO PROCEDURES Nicolette l Result * COLONOSCOPY (06/05/2019 1:50 PM DIMENSIONAL ENGINEER) Anatomical Region Laterality Modality Other Narrative Procedure Note Zackery Clarke MD - 06/05/2019 1:50 PM CST ENDOSCOPY LAB Patient Name: Silvana Mitchell Procedure Date: 06/05/2019 1:50 PM Admit Type: Outpatient Room: [facility] 2 Date of : 1960 Instrument Name: [id number] Gender: Female Note Status: Finalized Procedure: Colonoscopy Indications: High risk colon cancer surveillance: Personal historyof colonic polyps, Surveillance: Personal history of adenomatous polyps on last colonoscopy 5 years ago,Last colonoscopy: 2010 Providers: Zackery Clarke M.D. Referring MD: Patience Zapien M.D. Medicines: Propofol per Anesthesia Complications: No immediate complications. Estimated Blood Loss: Estimated blood loss: none. Procedure: Pre-Anesthesia Assessment: - Patient identification and proposed procedure were verified prior to the procedure by the physician. The procedure was verified in the pre-procedure area. - The risks and benefits of the procedure and thesedation options and risks were discussed with the patient. All questions were answered and informed consent wasobtained. The benefits, risks and alternatives of the procedureand sedation were discussed and informed consent wasobtained. All questions were answered. Please refer to the signed informed consent document in the medical record. Thescope was passed under direct vision. The Colonoscope was introduced through the anus and advanced to the the terminal ileum. The colonoscopy was performed without difficulty. The patient tolerated the procedure well.The quality of the bowel preparation was evaluated usingthe BBPS ([place] Bowel Preparation Scale) with scores of: Right Colon = 2 (minor amount of residual staining,small fragments of stool and/or opaque liquid, but mucosaseen well) and Transverse Colon = 2 (minor amount ofresidual staining, small fragments of stool and/or opaqueliquid, but mucosa seen well). The total BBPS score equals 4.The bowel preparation used was plenvu. Bowel prep was administered using a split dose. Findings: The terminal ileum appeared normal. A 5 mm polyp was found in the sigmoid colon. The polyp was sessile.The polyp was removed with a cold biopsy forceps. Resection and retrieval were complete. A 9 mm polyp was found in the sigmoid colon. The polyp was sessile.The polyp was removed with a cold snare. Resection and retrieval were complete. A few small-mouthed diverticula were found in the sigmoid colon. The exam was otherwise without abnormality on direct and retroflexion views. Impression: - The examined portion of the ileum was normal. - One 5 mm polyp in the sigmoid colon, removed with acold biopsy forceps. Resected and retrieved. - One 9 mm polyp in the sigmoid colon, removed with acold snare. Resected and retrieved. - Diverticulosis in the sigmoid colon. - The examination was otherwise normal on direct and retroflexion views. Recommendation: - [facility] The signs and symptoms of potential delayedcomplications were discussed with the patient. Return to normal activities tomorrow. Written discharge instructionswere provided to the patient. - Resume previous diet. - Continue present medications. - Await pathology results. - Pathology results will be sent to you by mail [email or web address] business days. Please call if you do not receivethese. - Repeat colonoscopy in 5 years for surveillance. - Return to endoscopist PRN. Attending Participation: I personally performed the entire procedure without the assistance ofa fellow, resident or surgical pathologist. Electronically signed by Zackery Clarke Zackery Clarke M.D. 06/05/2019 2:14:53 PM Number of Addenda: 0 Note Initiated On: 06/05/2019 1:50 PM Zackery Clarke MD ENDOSCOPY PROCEDURES Final Result * Hepatitis C antibody (01/16/2017 8:23 AM CDT) Hep C Ab Non-Reactiv e Non-Reactiv e [facility] Blood specimen (specimen) 01/16/2017 8:23 AM CDT 01/16/2017 3:10 PM CDT Patience Zapien MD LAB MICROBIOLOGY - GENERAL ORDERABLES Final Result [facility] [address] Department [place] [address] [place] [address] from Last 3 Months or Most Recently Relevant to Health Maintenance [place] Advance Directives For more information, please contact: [phone] * Full Code (Latest Code Status on File) Date Activated Date Inactivated Comments 06/05/2019 1:11 PM 06/05/2019 6:52 PM Care Teams Mis Specialist Relationship Specialty Start Date End Date Patience Zapien MD [address] [facility] [address], [place] [address] PCP - General 09/24/08
--- OUTSIDE RECORDS SUMMARY | 2024-09-06 12:27 | XMS_ITS | Clinical Summary ---
[facility] Organization [facility] Address [address] [place] [address] Care Team Providers Care Steel Hanger Name Role Phone Patience Zapien MD Primary Care Provider [phone] Allergies No known active allergies Medications cholecalciferol [...] diabetes Assessment & Plan (06/26/2019 8:56 AM ABSTRACT MAKER): Stable on medication. Will check labs today. Resolved Problems Problem Noted Date Diagnosed Date Resolved Date Personal history of colonic polyps 05/03/2018 03/10/2019 Overview (05/03/2018): Added automatically from request for surgery [id number] BMI 32.0-32.9,adult 01/16/2017 09/14/19 22 Assessment & Plan (06/26/2019 8:56 AM ABSTRACT MAKER): Eating a diet that is high in [...] for malign ant neoplasms, colon 01/16/2017 03/10/2019 Encounters Date Type Department Care Team Description 08/25/2024 Orders Only [facility] Medical Group Primary Care at [place] [address] [facility] [address] [place] [phone] Donna Ahumada NP Thrombosed external hemorrhoid (Primary Dx) 08/21/2024 7:30 AM CDT Office Visit [facility] Medical Group Primary Care at [address] [place] [phone] Donna Ahumada NP Thrombosed external hemorrhoid (Primary Dx) 08/16/2024 Orders Only [facility] [place] [place] Health Information Management [address] [place] [id number] Scanning, Provider from Last 3 Months Immunizations Immunization Administration Dates Next Due Influenza, Quadrivalent, Spl it, Preservative Free, Intramuscular 03/22/2023,03/20/2022,03/15/2021,03/11,03/10/2019,03/05/2018 Influenza, Trivalent, Cell Culture-based MDCK, Preservative Free, Antibiotic Free, Intramuscular 02/25/2024 Pfizer SARS-CoV-2 Monovalent Vaccination (12+ Yrs) PURPLE 08/19/2021 Pneumococcal Polysaccharide PPV23 01/16/2017 Tdap 03/05/2018 ZOSTER Recombinant 05/17/2022,02/28/2022 Surgical History Surgery Date Site/Laterality Comments OTHER SURGICAL HISTORY D&C SECTION x3 BREAST BIOPSY Medical History Medical History Date Comments Hyperlipidemia Asthma seasonal allergy Anxiety Hypertension 04/20/21 Family History Medical History Relation Name Comments Diabetes type II Father ednel Diabetes me llitus type 2; Heart attack Father edward Kidney failure Mother Coronary artery disease Other 1 Fami ly history of Coronary artery disease; Other Other 2 Family history of Diabetes -Type I; Other Other 3 No family histo ry of Cancer; Relation Name Status Comments Father edward (Age 77) Mother (Age 85) Other 1 Other 2 Other 3 Social History Tobacco Use Types Packs/Day Years [...] on file Legal Sex Female 9:50 AM ABSTRACT MAKER Gender Identity Not on file Sexual Orientation Not on file Obstetrics History Last Filed Vital Signs Vital Sign Reading [...] 08/21/2024 7:22 AM CDT Plan of Treatment Health Maintenance Due Date Last Done Comments Cervical Cancer Screening 1960 Hepatitis B Screening 09/12/1979 Pneumococcal vaccine <65 (2 of 2 - PCV) 01/16/2018 01/16/2017 Dilated Eye Exam 06/06/2023 06/06/2022 Covid-19 Vaccine ( - 2023-2 5 season) 2024 08/19/2021, 05/25/2021, 09/08/2020, Additional history exists Hemoglobin A1C 09/28/2024 03/31/2024, 09/18, 03/22/2023, Additional history exists Albumin Creatinine Ratio, Urine 03/31/2025 03/31/2024, 05/30/2023, 03/22/2023, Additional history exists Breast Cancer Screening-Mammogram 03/31/2025 03/31/2024, 03/31/2024, 03/31/2024, Additional history exists Depression Screening 03/31/2025 03/31/2024, 03/22/2023, 11/06/2022, Additional history exists Foot Exam 03/31/2025 03/31/2024, 06/2022, 03/20/2022, Additional history exists Lipid Panel 03/31/2025 03/31/2024, 06/2022, 03/20/2022, Additional history exists Regular Well Visit/Exam 18-64 03/31/2025, 03/22/2023, 03/20/2022, Additional history exists eGFR 04/07/2025 04/07/2024, 03/21, 10/04/2023, Additional history exists DTaP/Tdap/Td Vaccine (2 - Td or Tdap) 03/05/2028 03/05/2018 Colon Cancer Screening-Colonoscopy 06/05/2029 06/05/2019, 10/10/2011 Hepatitis C Screening Completed 01/16/2017, 015 Colon Cancer Screening-CT Colonography Discontinued 06/05/2019, 10/10/2011 Colon Cancer Screening-DNA Stool Discontinued 06/05/19 20, 10/10/2011 Colon Cancer Screening-FIT Discontinued 06/05/2019, Colon Cancer Screening-Sigmoidoscopy Discontinued 06/05/2019, 10/10/2011 Zoster Vaccine Completed 05/17/2022, 02/28/2022 Influenza Vaccine Completed 02/25/2024, , 03/20/2022, Additional history exists Procedures Procedure Name Priority Date/Time Associated Diagnosis Comments SCAN - RADIOLOGY/IMAGING 08/16/2024 BASIC METABOLIC PANEL Routine 04/07/2024 10:36 AM ABSTRACT MAKER Hyponatremia HEMOGLOBIN A1C Routine 03/31/2024 9:51 AM ABSTRACT MAKER Type 2 diabetes mellitus without complication, without long-term current use of insulin (HCC) LIPID PANEL Routine 03/31/2024 9:51 AM ABSTRACT MAKER Type 2 diabetes mellitus without complication, without long-term current use of insulin (HCC) ALBUMIN CREATININE RATIO, URINE Routine 03/31/2024 9:51 AM ABSTRACT MAKER Type 2 diabetes mellitus without complication, without long-term current use of insulin (HCC) SCREENING MAMMOGRAM 2D BILATERAL Schedule Routine, Read Routine (OP Routine) 03/31/2024 8:29 AM ABSTRACT MAKER COLONOSCOPY 06/05/2019 1:50 PM ABSTRACT MAKER HEPATITIS C ANTIBODY Routine 01/16/2017 8:23 AM CDT Generalized abdominal pain from Last 3 Months or Most Recently Relevant to Health Maintenance Results * SCAN - RADIOLOGY/IMAGING (08/16/2024) Anatomical Region Laterality Modality Other us Provider Scanning Final Result * Basic metabolic panel (04/07/2024 10:36 AM ABSTRACT MAKER) Pathologist [facility] Glucose 96 65 - 99 mg/dL [facility] Comment: Fasting reference interval BUN 17 7 - 25 mg/dL [facility] Creatinine 0.74 0.50 - 1.05 mg/dL [facility] eGFR 91 > OR = 60 mL/min/1.7 3m2 [facility] BUN/creat ratio SEE NOTE: 6 - 22 (calc) [facility] Comment: Not Reported: BUN and Creatinine are within reference range. Sodium 136 135 - 146 mmol/L [facility] Potassium, pl 4.7 3.5 - 5.3 mmol/L [facility] Chloride 100 98 - 110 mmol/L [facility] CO2 28 20 - 32 mmol/L [facility] Calcium 9.8 8.6 - 10.4 mg/dL [facility] Blood 04/07/2024 10:3 6 AM ABSTRACT MAKER 04/07/2024 10:37 AM ABSTRACT MAKER Patience Zapien MD LAB BLOOD ORDERABLES Final Result JJ [facility] [address] [place] [address] * (ABNORMAL) Albumin Creatinine Ratio, Urine (03/31/2024 9:51 AM ABSTRACT MAKER) Pathologist [facility] Albumin Ur 20.7 mg/L Comment: Interpretive Data No reference range established. Current interpretive data was last revised 2018. Creatinine Ur 42.5 mg/dL [facility] Comment: Interpretive Data No reference range established. Current interpretive data was last revised 2018. Albumin Creatinine Ratio, Ur 49(H) 1 - 29 mg/g [facility] Urine 03/31/2024 9:51 AM ABSTRACT MAKER 03/31/2024 9:51 AM ABSTRACT MAKER Patience Zapien MD LAB URINE ORDERABLES Final Result Performing Organization Address [facility] de Phone Number [facility] [address] [facility] [place] [address] * (ABNORMAL) Hemoglobin A1c (03/31/2024 9:51 AM ABSTRACT MAKER) Hgb A1C 6.0(H) 4.0 - 5.6 % Estimated Average Glucose 126 mg/dL [facility] Comment: The ADA recommends reporting an estimated Average Glucose (eAG) with all Hemoglobin A1c results using the equation derived from a study of 507 normal and diabetic adults. Minority populations were underrepresented and children were not included. (Diabetes Care 31:8563-9437, 2008). The eAG is not equivalent to a fasting glucose. Blood 03/31/2024 9:51 AM ABSTRACT MAKER 03/31/2024 12:49 PM ABSTRACT MAKER Patience Zapien MD LAB BLOOD ORDERABLES Final Result Performing Organization Address City/[facility] Co de Phone Number [facility] [address] Department [email or web address] [address] * Lipid panel (03/31/2024 9:51 AM ABSTRACT MAKER) Cholesterol 181 30 - 199 mg/dL Comment: [...] in Children and Adolescents. Pediatrics 2011;128:S213 2. CAEP Expert Panel. Circulation 2004;110:227 Current Interpretive Data was last revised on 2018. Triglycerides 139 <=149 mg/dL [facility] Comment: Interpretive Data Ages < or = [...] revised on 2018. HDL 66 >=40 mg/dL [facility] Comment: Interpretive Data Ages < or = [...] on 2018. LDL, calculated 91 <=129 mg/dL [facility] Comment: Interpretive Data Ages < or = 19 years Acceptable: <110 mg/dL Borderline high: 110-129 mg/dL High: >or= 130 mg/dL Ages > or = 20 years Optimal: <100 mg/dL Near optimal: 100-129 mg/dL Borderline high: 130-159 mg/dL High: >160 mg/dL Calculated using the Roldan LDL-C estimating equation. This equation was implemented on 2024. Prior to this date LDL-C was estimated using the Friedewald equation. Literature References: 1. Expert Panel on Integrated Guidelines for Cardiovascular Health and Risk Reduction in Children and Adolescents. Pediatrics 2011;128:S213 2. NCEP Expert Panel. Circulation 2004;110:227 3. Jamar M et al. SILVIA Cardiol. 2019September 18;5(5):540-548. doi: 10.1001/jamacardio.2020.0013 Current Interpretive Data was last revised on 2024. Non-HDL Cholesterol 115 mg/dL [facility] Comment: Interpretive Data Ages < or = [...] last revised on 2018. Chol/HDL ratio 3 [facility] Blood 03/31/2024 9:51 AM ABSTRACT MAKER 03/31/2024 12:49 PM ABSTRACT MAKER Patience Zapien MD LAB BLOOD ORDERABLES Final Result [facility] [address] Department [place] [address] * Screening Mammogram 2D Bilateral (03/31/2024 8:29 AM ABSTRACT MAKER) Anatomical Region Laterality Modality Breast Bilateral Mammography us Historical Provider MD [facility] PROCEDURES Nicolette l Result * COLONOSCOPY (06/05/2019 1:50 PM ABSTRACT MAKER) Anatomical Region Laterality Modality Other Narrative Procedure Note Zackery Clarke MD - 06/05/2019 1:50 PM CST ENDOSCOPY LAB Patient Name: Silvana Mitchell Procedure Date: 06/05/2019 1:50 PM Admit Type: Outpatient Room: [facility] 2 Date of : 1960 Instrument Name: [...] the bowel preparation was evaluated usingthe BBPS ([place] Bowel Preparation Scale) with scores of: Right [...] - Patient has a contact [facility] The signs and symptoms of potential delayedcomplications were discussed with the patient. Return to normal activities tomorrow. Written discharge instructionswere provided to the patient. - Resume previous diet. - Continue present medications. - Await pathology results. - Pathology results will be sent to you by mail [email or web address] business days. Please call if you do not receivethese. - Repeat colonoscopy in 5 years for surveillance. - Return to endoscopist PRN. Attending Participation: I personally performed the entire procedure without the assistance ofa fellow, resident or clinical medical assistant. Electronically signed by Zackery Clarke Zackery Clarke M.D. 06/05/2019 2:14:53 PM Number of Addenda: 0 Note Initiated On: 06/05/2019 1:50 PM us Zackery Clarke MD ENDOSCOPY PROCEDURES Final Result * Hepatitis C antibody (01/16/2017 8:23 AM CDT) Hep C Ab Non-Reactiv e Non-[facility]activ e [facility] Blood specimen (specimen) 01/16/2017 8:23 AM CDT 01/16/2017 3:10 PM CDT Patience Zapien MD LAB MICROBIOLOGY - GENERAL ORDERABLES Final Result [facility] [address] Department [place] [address] from Last 3 Months or Most Recently Relevant to Health Maintenance Insurance [employer] MD [employer] MD [facility] Advance Directives For more information, please contact: [phone] * Full Code (Latest Code Status on File) Date Activated Date Inactivated Comments 06/05/2019 1:11 PM 06/05/2019 6:52 PM Care Teams Steel Hanger Relationship Specialty Start Date End Date Patience Zapien MD [address] [facility] [address], [place] [address] PCP - General 09/24/08
--- OUTSIDE RECORDS SUMMARY | 2024-09-06 12:28 | XMS_ITS | Encounter Summary ---
Author Organization [facility] Healthcare Address [address] [place] [address] Care Team Providers Care Physical Science Technician Name Role Phone Patience Zapien MD Primary Care Provider Encounter Details Date Type Department Care Team (Late st Contact Info) Description 03/31/2024 Orders Only [facility] Health Information Management [address] [place] [address] Patience Zapien MD [address] [address] Social History Tobacco Use Types Packs/Day Years Used Date Smoking Tobacco: Former Smokeless Tobacco: Never Alcohol Use Standard Drinks/Week Comments Yes 1 (1 standard drink = 0.6 oz pur e alcohol) PHQ-2 Answer Date Recorded PHQ-2 Total Score (If total score is 3 or more points, staff should administer the PHQ-9) 0 03/31/2024 Comments Unknown Sex and Gender Information Value Date Recorded Sex Assigned at Not on file Legal Sex Female 9:50 AM CONTROL CHEMIST Gender Identity Not on file Sexual Orientation Not on file documented as of this encounter Plan of Treatment Not on file documented as of this encounter Procedures Procedure Name Priority Date/Time Associated Diagnosis Comments SCAN - RADIOLOGY/IMAGING 03/31/2024 documented in this encounter Results * SCAN - RADIOLOGY/IMAGING (03/31/2024) Anatomical Region Laterality Modality Other us Patience Zapien MD Edited Resu lt - Final documented in this encounter Visit Diagnoses Not on filedocumented in this encounter Care Teams Physical Science Technician Relationship Specialty Start Date End Date Patience Zapien MD [address] [address] PCP - General 09/24/08 documented as of this encounter
--- OUTSIDE RECORDS SUMMARY | 2024-09-06 12:28 | XMS_ITS | CONTINUITY OF CARE DOCUMENT ---
Author Name jona tenorio Address Unknown Organization [facility] Address [address] [facility] [address] [facility] [address] [place] [address] Phone [phone] Care Team Providers Care Lumber Straightened Name Role Phone Tyrell Pena MD Unavailable TIRSO KLINE MD Unavailable TIRSO KLINE MD Unavailable PROBLEMS Condition Status Date Provider Notes Cardiovascular screening active Kiah Oquendo [employer] Payer name Policy type / Coverage type [place] [employer] party ID SELF PAY TREATMENT PLAN Date Name CT, Coronary Calcium Score HISTORY OF PROCEDURES Procedure Date Procedure Name Provider Procedure Notes S tatus CT- Coronary CA score Tyrell Pena MD completed
--- OUTSIDE RECORDS SUMMARY | 2024-09-06 12:28 | XMS_ITS | Encounter Summary ---
Author Organization [facility] Healthcare Address [address] [place] [address] Care Team Providers Care Registered Nurse Cardiovascular Icu Name Role Phone Patience Zapien MD Primary Care Provider Encounter Details Date Type Department Care Team (Late st Contact Info) Description 08/16/2024 Orders Only [facility] Information Management [address] [place] [address] Scanning, Provider Social History Tobacco Use Types Packs/Day Years [...] on file Legal Sex Female 9:50 AM APPLICATION INTEGRATOR Gender Identity Not on file Sexual Orientation Not on file documented as of this encounter Plan of Treatment Not on file documented as of this encounter Procedures Procedure Name Priority Date/Time Associated Diagnosis Comments SCAN - RADIOLOGY/IMAGING 08/16/2024 documented in this encounter Results * SCAN - RADIOLOGY/IMAGING (08/16/2024) Anatomical Region Laterality Modality Other us Provider Scanning Final Result documented in this encounter Visit Diagnoses Not on filedocumented in this encounter Care Teams Registered Nurse Cardiovascular Icu Relationship Specialty Start Date End Date Patience Zapien MD [address] [place] [address] PCP - General 09/24/08 documented as of this encounter
[2024-09-06 13:12] VITALS: BP 133/65; PULSE 72; RESP 18; TEMP 36.4; O2SAT 96
== END 2024-09-06 13:17 | disposition home or self-care (01) ==
PROVIDERS: Emergency Provider Emergency Medicine; PCP Internal Medicine
DX: S06.0X0A Concussion without loss of consciousness, initial encounter (principal); V89.2XXA Person injured in unspecified motor-vehicle accident, traffic, initial encounter
CPT/HCPCS: 70450; 99284